=== PATIENT | female | born 1960 | race Caucasian/White ===

== ENCOUNTER 2017-05-31 10:36 | Outpatient (CLI) | payer OTHER ==
[~2017-05-31 10:36] MED LIST: AMLO5TAB PO; CHOL50004 PO; CYAN5000 PO; ESTR1TAB19 PO; HYDR-569 PO; LOSA1TAB39 PO; MONT10TA21 PO; MULT-38 PO; OMEG-182 PO; PROG200C7 PO; THY60T PO
[2017-06-01 08:18] LABS: ESTRADIOL 104.8 pg/mL (.); PROGESTERONE 0.4 ng/mL (.); THIIODOTHRONINE, FREE, SERUM 4.3 pg/mL (2.0-4.4)
[2017-06-03 05:10] LABS: TESTOSTERONE, FREE, DIRECT 0.4 pg/mL (0.0-4.2)
== END 2017-05-31 23:59 | disposition home or self-care (01) ==
LOC: LAB 10:36
PROVIDERS: ATTEND Physician Assistant Medical
DX: E03.9 Hypothyroidism, unspecified (principal); N95.1 Menopausal and female climacteric states; R53.83 Other fatigue; I10 Essential (primary) hypertension
CPT/HCPCS: 36415; 82670; 84144; 84402; 84403; 84439; 84481

== ENCOUNTER 2018-04-02 13:56 | Outpatient (CLI) | payer OTHER ==
[~2018-04-02 13:56] MED LIST changes: +HYDR-4383 PO; -HYDR-569 PO
[2018-04-02 15:04] LABS: ALANINE AMINOTRANSFERASE 36 U/L (12-78); ALBUMIN 3.8 G/DL (3.4-5.0); ALBUMIN/GLOBULIN RATIO 1.2 (1.1-1.5); ALKALINE PHOSPHATASE 59 IU/L (46-116); ANION GAP 12 (8-16); ASPARTATE AMINO TRANSFERASE 25 U/L (10-37); BILIRUBIN,TOTAL 0.4 MG/DL (0.1-1.0); BLOOD UREA NITROGEN 15 MG/DL (7-18); BUN/CREATININE RATIO 20.5 (6.6-38.0); CHLORIDE 103 MMOL/L (99-107); CREATININE 0.73 MG/DL (0.40-0.90); GLUCOSE 117 MG/DL (70-104); POTASSIUM 3.5 MMOL/L (3.5-5.1); SODIUM 142 MMOL/L (135-145); TOTAL CARBON DIOXIDE 27.3 MMOL/L (24-32); eGFR 82 ML/MIN
[2018-04-04 08:15] LABS: ESTRADIOL 108.9 pg/mL (.); PROGESTERONE 0.3 ng/mL (.)
[2018-04-04 09:17] LABS: THIIODOTHRONINE, FREE, SERUM 3.6 pg/mL (2.0-4.4)
[2018-04-06 05:18] LABS: TESTOSTERONE, FREE, DIRECT 1.2 pg/mL (0.0-4.2)
== END 2018-04-02 23:59 | disposition home or self-care (01) ==
LOC: LAB 13:56
PROVIDERS: ATTEND Physician Assistant Medical
DX: E03.9 Hypothyroidism, unspecified (principal); N95.1 Menopausal and female climacteric states; R53.83 Other fatigue; I10 Essential (primary) hypertension; Z90.710 Acquired absence of both cervix and uterus
CPT/HCPCS: 36415; 80053; 82670; 84144; 84402; 84403; 84439; 84481

== ENCOUNTER 2018-07-17 14:18 | Outpatient (CLI) | payer OTHER ==
[2018-07-19 08:15] LABS: THIIODOTHRONINE, FREE, SERUM 3.5 pg/mL (2.0-4.4)
[2018-07-19 11:14] LABS: ESTRADIOL 93.4 pg/mL (.); PROGESTERONE <0.1 ng/mL (.)
[2018-07-20 11:10] LABS: TESTOSTERONE, FREE, DIRECT 1.3 pg/mL (0.0-4.2)
== END 2018-07-17 23:59 | disposition home or self-care (01) ==
LOC: LAB 14:18
PROVIDERS: ATTEND Physician Assistant Medical
DX: E03.9 Hypothyroidism, unspecified (principal); R53.83 Other fatigue; N95.1 Menopausal and female climacteric states; I10 Essential (primary) hypertension; Z90.710 Acquired absence of both cervix and uterus
CPT/HCPCS: 36415; 82670; 84144; 84402; 84403; 84439; 84481

== ENCOUNTER 2018-12-20 09:34 | Outpatient (CLI) | payer OTHER ==
[~2018-12-20 09:34] MED LIST changes: +PROG200C11 PO; -PROG200C7 PO
[2018-12-20 10:44] LABS: BASOPHILS # (AUTO) 0.1 X10'3 (0-0.2); BASOPHILS % (AUTO) 1.1 % (0-1); EOSINOPHILS # (AUTO) 0.2 X10'3 (0-0.9); EOSINOPHILS % (AUTO) 3.2 % (0-6); HEMATOCRIT 45.5 % (35.0-45.0); HEMOGLOBIN 15.6 g/dl (12.0-16.0); LYMPHOCYTES # (AUTO) 1.9 X10'3 (1.1-4.8); LYMPHOCYTES % (AUTO) 38.2 % (21-51); MEAN CORPUSCULAR HEMOGLOBIN 32.6 PG (27.0-31.0); MEAN CORPUSCULAR HGB CONC 34.3 g/dL (33.0-36.5); MEAN CORPUSCULAR VOLUME 95.1 FL (78-98); MEAN PLATELET VOLUME 9.6 FL (7.4-10.4); MONOCYTES # (AUTO) 0.4 X10'3 (0-0.9); MONOCYTES % (AUTO) 8.8 % (2-12); NEUTROPHILS # (AUTO) 2.4 X10'3 (1.8-7.7); NEUTROPHILS % (AUTO) 48.7 % (42-75); PLATELET COUNT 212 X10'3 (140-440); RED BLOOD COUNT 4.78 X10'6 (4.20-5.60); RED CELL DISTRIBUTION WIDTH 12.4 % (11.5-14.5); WHITE BLOOD COUNT 4.9 X10'3 (4.5-11.0)
[2018-12-20 11:17] LABS: ALANINE AMINOTRANSFERASE 32 U/L (12-78); ALBUMIN 3.9 G/DL (3.4-5.0); ALBUMIN/GLOBULIN RATIO 1.1 (1.1-1.5); ALKALINE PHOSPHATASE 43 IU/L (46-116); ANION GAP 10 (8-16); ASPARTATE AMINO TRANSFERASE 16 U/L (10-37); BILIRUBIN,TOTAL 0.5 MG/DL (0.1-1.0); BLOOD UREA NITROGEN 19 MG/DL (7-18); CALCIUM 8.9 MG/DL (8.5-10.1); CHLORIDE 104 MMOL/L (99-107); CHOL/HDL RATIO 4.5 (0.00-4.99); CHOLESTEROL 193 MG/DL (0-200); CREATININE 0.73 MG/DL (0.40-0.90); GLUCOSE 107 MG/DL (70-104); HDL CHOLESTEROL 43 MG/DL (35-60); LDL CHOLESTEROL 134 MG/DL (50-100); POTASSIUM 3.5 MMOL/L (3.5-5.1); SODIUM 141 MMOL/L (135-145); TOTAL CARBON DIOXIDE 26.9 MMOL/L (24-32); TOTAL PROTEIN 7.6 G/DL (6.4-8.2); TRIGLYCERIDES 99 MG/DL (20-135); eGFR 82 ML/MIN
[2018-12-21 08:18] LABS: APOLIPOPROTEIN B 112 mg/dL (<90)
[2018-12-21 13:11] LABS: ESTRADIOL 66.2 pg/mL (.); PROGESTERONE 0.4 ng/mL (.)
[2018-12-21 19:07] LABS: THIIODOTHRONINE, FREE, SERUM 3.4 pg/mL (2.0-4.4)
== END 2018-12-20 23:59 | disposition home or self-care (01) ==
LOC: LAB 09:34
PROVIDERS: ATTEND Physician Assistant Medical
DX: N95.1 Menopausal and female climacteric states (principal); E03.9 Hypothyroidism, unspecified; E78.5 Hyperlipidemia, unspecified; R53.83 Other fatigue; I10 Essential (primary) hypertension; Z72.89 Other problems related to lifestyle
CPT/HCPCS: 36415; 80053; 80061; 82172; 82670; 84144; 84402; 84403; 84439; 84481; 85025

== ENCOUNTER 2019-05-06 08:04 | Outpatient (CLI) | payer OTHER ==
[2019-05-06 14:36] LABS: ALANINE AMINOTRANSFERASE 34 U/L (12-78); ALBUMIN 3.8 G/DL (3.4-5.0); ALKALINE PHOSPHATASE 54 IU/L (46-116); ANION GAP 11 (8-16); ASPARTATE AMINO TRANSFERASE 26 U/L (10-37); BILIRUBIN,TOTAL 0.5 MG/DL (0.1-1.0); BLOOD UREA NITROGEN 14 MG/DL (7-18); BUN/CREATININE RATIO 18.9 (6.6-38.0); CHLORIDE 104 MMOL/L (99-107); CHOLESTEROL 163 MG/DL (0-200); CREATININE 0.74 MG/DL (0.40-0.90); GLUCOSE 117 MG/DL (70-104); HDL CHOLESTEROL 41 MG/DL (35-60); LDL CHOLESTEROL 104 MG/DL (50-100); POTASSIUM 3.4 MMOL/L (3.5-5.1); SODIUM 142 MMOL/L (135-145); TOTAL CARBON DIOXIDE 26.7 MMOL/L (24-32); TOTAL PROTEIN 7.5 G/DL (6.4-8.2); TRIGLYCERIDES 125 MG/DL (20-135); eGFR 80 ML/MIN
[2019-05-08 08:46] LABS: TESTOSTERONE, FREE, DIRECT 3.9 pg/mL (0.0-4.2)
== END 2019-05-06 23:59 | disposition home or self-care (01) ==
LOC: LAB 08:04
PROVIDERS: ATTEND Physician Assistant Medical
DX: E34.9 Endocrine disorder, unspecified (principal); R53.83 Other fatigue
CPT/HCPCS: 36415; 80053; 80061; 84402; 84403

== ENCOUNTER 2019-12-12 08:18 | Outpatient (CLI) | payer BC ==
[2019-12-12 09:15] LABS: BASOPHILS # (AUTO) 0.1 X10'3 (0-0.2); BASOPHILS % (AUTO) 1.5 % (0-1); EOSINOPHILS # (AUTO) 0.2 X10'3 (0-0.9); EOSINOPHILS % (AUTO) 3.2 % (0-6); HEMATOCRIT 43.5 % (35.0-45.0); LYMPHOCYTES # (AUTO) 2.2 X10'3 (1.1-4.8); LYMPHOCYTES % (AUTO) 41.5 % (21-51); MEAN CORPUSCULAR HEMOGLOBIN 32.2 PG (27.0-31.0); MEAN CORPUSCULAR HGB CONC 34.4 g/dL (33.0-36.5); MEAN CORPUSCULAR VOLUME 93.6 FL (78-98); MEAN PLATELET VOLUME 9.2 FL (7.4-10.4); MONOCYTES # (AUTO) 0.6 X10'3 (0-0.9); MONOCYTES % (AUTO) 10.4 % (2-12); NEUTROPHILS # (AUTO) 2.3 X10'3 (1.8-7.7); NEUTROPHILS % (AUTO) 43.4 % (42-75); PLATELET COUNT 198 X10'3 (140-440); RED BLOOD COUNT 4.65 X10'6 (4.20-5.60); RED CELL DISTRIBUTION WIDTH 12.5 % (11.5-14.5); WHITE BLOOD COUNT 5.4 X10'3 (4.5-11.0)
[2019-12-12 09:55] LABS: ALANINE AMINOTRANSFERASE 44 U/L (12-78); ALBUMIN 3.8 G/DL (3.4-5.0); ALKALINE PHOSPHATASE 51 IU/L (46-116); ANION GAP 10 (8-16); ASPARTATE AMINO TRANSFERASE 25 U/L (10-37); BILIRUBIN,TOTAL 0.4 MG/DL (0.1-1.0); BLOOD UREA NITROGEN 17 MG/DL (7-18); CALCIUM 8.8 MG/DL (8.5-10.1); CHLORIDE 104 MMOL/L (99-107); CREATININE 0.68 MG/DL (0.40-0.90); GLUCOSE 114 MG/DL (70-104); POTASSIUM 3.4 MMOL/L (3.5-5.1); SODIUM 139 MMOL/L (135-145); TOTAL CARBON DIOXIDE 25.2 MMOL/L (24-32); TOTAL PROTEIN 7.6 G/DL (6.4-8.2); eGFR 88 ML/MIN
[2019-12-13 11:59] LABS: ESTRADIOL 90.1 pg/mL (.); PROGESTERONE 5.4 ng/mL (.); THIIODOTHRONINE, FREE, SERUM 4.2 pg/mL (2.0-4.4)
== END 2019-12-12 23:59 | disposition home or self-care (01) ==
LOC: LAB 08:18
PROVIDERS: ATTEND Physician Assistant Medical
DX: E55.9 Vitamin D deficiency, unspecified (principal); E03.9 Hypothyroidism, unspecified; N95.1 Menopausal and female climacteric states; R53.83 Other fatigue
CPT/HCPCS: 36415; 80053; 82306; 82627; 82670; 84144; 84402; 84403; 84439; 84481; 85025

== ENCOUNTER 2020-02-11 09:12 | Emergency (ER) | payer BC, OTHER ==
[~2020-02-11] VITALS: Ht 172.7 cm; Wt 104.5 kg
[2020-02-11 11:05] LABS: CLARITY,URINE SLIGHTLY CLOUDY (Clear); COLOR,URINE YELLOW (Yellow); GLUCOSE, URINE NEGATIVE (Neg); KETONES,URINE TRACE mg/dl (Neg); LEUKOCYTE ESTERASE ,URINE NEGATIVE (Neg); NITRITES, URINE POSITIVE (Neg); OCCULT BLOOD,URINE NEGATIVE (Neg); PROTEIN,URINE >=300 mg/dl (Neg); UROBILINOGEN,URINE 0.2 E.U/dL (0.2-1.0)
[2020-02-11 11:07] LABS: BASOPHILS % (AUTO) 0.4 % (0-1); EOSINOPHILS % (AUTO) 0.1 % (0-6); HEMATOCRIT 45.1 % (35.0-45.0); HEMOGLOBIN 15.7 g/dl (12.0-16.0); LYMPHOCYTES # (AUTO) 0.9 X10'3 (1.1-4.8); LYMPHOCYTES % (AUTO) 23.1 % (21-51); MEAN CORPUSCULAR HEMOGLOBIN 32.3 PG (27.0-31.0); MEAN CORPUSCULAR HGB CONC 34.9 g/dL (33.0-36.5); MEAN CORPUSCULAR VOLUME 92.6 FL (78-98); MEAN PLATELET VOLUME 8.9 FL (7.4-10.4); MONOCYTES # (AUTO) 0.3 X10'3 (0-0.9); MONOCYTES % (AUTO) 7.8 % (2-12); NEUTROPHILS # (AUTO) 2.8 X10'3 (1.8-7.7); NEUTROPHILS % (AUTO) 68.6 % (42-75); PLATELET COUNT 169 X10'3 (140-440); RED BLOOD COUNT 4.87 X10'6 (4.20-5.60); RED CELL DISTRIBUTION WIDTH 11.9 % (11.5-14.5); WHITE BLOOD COUNT 4.1 X10'3 (4.5-11.0)
[2020-02-11 11:10] LABS: UA COLLECTION TYPE CLN CATCH MIDSTREAM
[2020-02-11 11:13] LABS: MUCUS STRANDS MANY /LPF (Neg)
[2020-02-11 11:14] LABS: BACTERIA,URINE 3+ /HPF (Neg); HYALINE CASTS 0-3 /LPF (NEGATIVE); SQUAMOUS EPITHELIAL CELL,UR MANY /LPF (FEW)
[2020-02-11 11:15] LABS: RBC,URINE 0-2 /HPF (0-2); TRANSITIONAL EPI CELLS,URINE FEW /HPF
[2020-02-11 11:19] LABS: ALANINE AMINOTRANSFERASE 48 U/L (12-78); ALBUMIN 3.4 G/DL (3.4-5.0); ALBUMIN/GLOBULIN RATIO 0.7 (1.1-1.5); ALKALINE PHOSPHATASE 92 IU/L (46-116); ANION GAP 9 (8-16); ASPARTATE AMINO TRANSFERASE 38 U/L (10-37); BILIRUBIN,TOTAL 0.4 MG/DL (0.1-1.0); BLOOD UREA NITROGEN 14 MG/DL (7-18); BUN/CREATININE RATIO 18.2 (6.6-38.0); CALCIUM 8.6 MG/DL (8.5-10.1); CHLORIDE 97 MMOL/L (99-107); CREATININE 0.77 MG/DL (0.40-0.90); GLUCOSE 144 MG/DL (70-104); POTASSIUM 3.1 MMOL/L (3.5-5.1); SODIUM 134 MMOL/L (135-145); TOTAL CARBON DIOXIDE 27.9 MMOL/L (24-32); eGFR 76 ML/MIN
[2020-02-11] MEDS ORDERED: ALBU8HFA PO (11:27)
[2020-02-11] MEDS ORDERED: CEPH250T PO (11:27)
[2020-02-11] MEDS ORDERED: potassium Cl 20 mEq SR tablet PO ONE (11:30)
[2020-02-11 11:45] VITALS: BP 171/104
[2020-02-11] MEDS ORDERED: PRED10TA23 PO (12:21)
== END 2020-02-11 12:42 | disposition home or self-care (01) ==
LOC: EEVIPCON 09:13 → ER 09:13
DX: N39.0 Urinary tract infection, site not specified (principal); Z20.828 Contact with and (suspected) exposure to other viral communicable diseases; R06.02 Shortness of breath; I10 Essential (primary) hypertension; K21.9 Gastro-esophageal reflux disease without esophagitis; Z72.89 Other problems related to lifestyle; Z98.890 Other specified postprocedural states; Z88.0 Allergy status to penicillin; Z88.8 Allergy status to other drugs, medicaments and biological substances; Z88.2 Allergy status to sulfonamides; Z79.899 Other long term (current) drug therapy
CPT/HCPCS: 36415; 71045; 80053; 81001; 85025; 85379; 99284

== ENCOUNTER 2020-02-13 10:21 | Emergency (ER) | payer BC ==
[~2020-02-13] VITALS: Ht 172.7 cm; Wt 104.5 kg
[~2020-02-13 10:21] MED LIST changes: +ALBU8HFA PO; +CEPH250T PO; +PRED10TA23 PO
[2020-02-13 10:46] VITALS: BP 145/89
--- NOTE | 2020-02-13 11:15 | NUR ---
While ambulating in the parking lot and immediately afterwards the patient's pulse oximetry was measured to be 90-93%. Pt reports her biggest concern is the fevers that are persisting with 8-9 days post positive test result. Current oral temperature is 99.3. Heart rate 89-94 bpm and pulse ox ranging 93-94% on room air while sitting down in the chair, not exerting herself.
[2020-02-13] MEDS ORDERED: PRED10TA23 PO (11:54)
== END 2020-02-13 12:01 | disposition home or self-care (01) ==
LOC: ER 10:22
DX: U07.1 COVID-19 (principal); R06.02 Shortness of breath; R50.9 Fever, unspecified; I10 Essential (primary) hypertension; K21.9 Gastro-esophageal reflux disease without esophagitis; Z98.890 Other specified postprocedural states; Z72.89 Other problems related to lifestyle; Z88.0 Allergy status to penicillin; Z88.2 Allergy status to sulfonamides; Z88.8 Allergy status to other drugs, medicaments and biological substances; Z79.2 Long term (current) use of antibiotics; Z79.899 Other long term (current) drug therapy
CPT/HCPCS: 99283

== ENCOUNTER 2020-05-20 12:21 | Outpatient (CLI) | payer BC ==
[~2020-05-20 12:21] MED LIST changes: -ALBU8HFA PO; -CEPH250T PO; -PRED10TA23 PO
== END 2020-05-20 23:59 | disposition home or self-care (01) ==
LOC: LAB 12:21
PROVIDERS: ATTEND Physician Assistant Medical
DX: N95.1 Menopausal and female climacteric states (principal); E34.9 Endocrine disorder, unspecified
CPT/HCPCS: 36415; 84402; 84403

== ENCOUNTER 2021-03-24 07:44 | Day surgery (SDC) | payer BC ==
[~2021-03-24] VITALS: Ht 172.7 cm; Wt 106.8 kg
[2021-03-24 07:52] VITALS: BP 163/101
[2021-03-24] MEDS ORDERED: ESTR2TAB50 PO (07:58)
[2021-03-24] MEDS ORDERED: LOSA1TAB41 PO (07:59)
[2021-03-24] MEDS ORDERED: POTA10CA44 PO (08:01)
[2021-03-24] MEDS ORDERED: PROG100C11 PO (08:02)
[2021-03-24] MEDS ORDERED: USTE90DI SUBCUT (08:02)
[2021-03-24] MEDS ORDERED: OMEP20TA23 PO (08:04)
[2021-03-24] MEDS ORDERED: THY60T PO (08:04)
[2021-03-24] MEDS ORDERED: PRAS25CA PO (08:05)
[2021-03-24] MEDS ORDERED: MAGN500C16 PO (08:06)
[2021-03-24] MEDS ORDERED: fentaNYL/PF 50MCG/1 ML 2ML syringe ONE (08:09)
[2021-03-24] MEDS ORDERED: MIDAZolam 1 MG/ML 5ML VIAL ONE ×2 (08:09→08:10)
[2021-03-24 09:55] VITALS: BP 129/68
[2021-03-24 10:05] VITALS: BP_SYST 121; BP_DIAS 60; BP_DIAS 72
[2021-03-24 10:15] VITALS: BP 116/61
[2021-03-24 10:20] VITALS: BP 122/72
== END 2021-03-24 10:55 | disposition home or self-care (01) ==
LOC: GI LAB 07:44
PROVIDERS: ATTEND Internal Medicine Gastroenterology
DX: Z12.11 Encounter for screening for malignant neoplasm of colon (principal); K57.30 Diverticulosis of large intestine without perforation or abscess without bleeding; K64.8 Other hemorrhoids; I10 Essential (primary) hypertension; Z72.89 Other problems related to lifestyle; Z88.0 Allergy status to penicillin; Z88.2 Allergy status to sulfonamides; Z79.899 Other long term (current) drug therapy
CPT/HCPCS: 45378; 99152; 99153; J2250; J3010; J7040; Z7512; A4620